=== PATIENT | female | born 1970 | race African-American/Black ===

== ENCOUNTER 2019-02-08 09:38 | Inpatient (IN) | payer OTHER ==
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
[2019-02-08 11:14] VITALS: BMI 20.4
[2019-02-08] MEDS ORDERED: METHOCARBAMOL 500 MG TABLET PO PRN (12:07)
[2019-02-08] MEDS ORDERED: IBUPROFEN 400 MG TABLET (FP) PO PRN (12:07)
[2019-02-08] MEDS ORDERED: MAGNESIUM HYDROX 2400MG/30ML ORAL SUSPENSION 30 ML CUP PO PRN (12:07)
[2019-02-08] MEDS ORDERED: MAG HYDROX/AL HYDROX/SIMETH 30 ML UNIT-DOSE CUP PO PRN (12:07)
[2019-02-08] MEDS ORDERED: ACETAMINOPHEN 325 MG TABLET (FP) PO PRN ×2 (12:07)
[2019-02-08] MEDS ORDERED: MENTHOL/PHENOL 1 EACH UD MM PRN (12:07)
[2019-02-08] MEDS ORDERED: NICOTINE POLACRILEX 4 MG GUM BUC PRN (12:07)
[2019-02-08] MEDS ORDERED: BISMUTH SUBSALICYLATE 524 MG/30 ML UD PO PRN (12:07)
[2019-02-08] MEDS ORDERED: MAGNESIUM CITRATE 300 ML BOTTLE PO PRN (12:07)
[2019-02-08] MEDS ORDERED: ALBUTEROL SO4 8 GM HFA INHALER IH PRN (12:15)
[2019-02-08] MEDS ORDERED: METHADONE HCL 10 MG TABLET PO ONE (12:21)
[2019-02-08] MEDS: NICOTINE 21 MG/24 HOURS TOPICAL PATCH TD SCH (13:00)
[2019-02-08] MEDS: hydrOXYzine PAMOATE 25 MG CAPSULE (FP) PO PRN (17:06)
[2019-02-08] MEDS: LORazepam 2 MG TABLET PO SCH ×2 (17:07→22:30)
--- NOTE | 2019-02-08 17:52 | EKG ---
Test Reason : Blood Pressure : / mmHG Vent. Rate : 089 BPM Atrial Rate : 089 BPM P-R Int : 138 ms QRS Dur : 072 ms QT Int : 372 ms P-R-T Axes : 070 069 071 degrees QTc Int : 452 ms NORMAL SINUS RHYTHM POSSIBLE LEFT ATRIAL ENLARGEMENT BORDERLINE ECG NO PREVIOUS ECGS AVAILABLE Confirmed by MD Catia, Karlos ([id number]) on 02/08/2019 5:51:43 PM Referred By: ARCENIO SIEGEL Confirmed By:Karlos Bardales MD
[2019-02-08] MEDS: BUDESONIDE/FORMETEROL FUMARATE 160/4.5 mcg INHALER IH SCH (21:45)
[2019-02-08] MEDS: THIAMINE HCL 100 MG TABLET (FP) PO SCH (21:53)
[2019-02-09] MEDS: LORazepam 2 MG TABLET PO SCH ×4 (05:35→22:50)
[2019-02-09] MEDS ORDERED: METHADONE HCL 10 MG TABLET PO ONE (06:00)
[2019-02-09] MEDS: hydrOXYzine PAMOATE 25 MG CAPSULE (FP) PO PRN (08:45)
[2019-02-09] MEDS: BUDESONIDE/FORMETEROL FUMARATE 160/4.5 mcg INHALER IH SCH ×2 (09:04→21:08)
[2019-02-09] MEDS: PRENATAL VITAMINS W/ FOLIC ACID TABLET (FP) PO SCH (09:04)
[2019-02-09] MEDS: NICOTINE 21 MG/24 HOURS TOPICAL PATCH TD SCH (09:04)
[2019-02-09] MEDS: TIOTROPIUM BROMIDE 2.5 MCG (SPIRIVA) RESPIMAT INHALER IH SCH (10:12)
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
[2019-02-09 12:13] LABS: HEMATOCRIT 32.5 % (32.4-45.2); HEMOGLOBIN 10.4 GM/dL (10.7-15.3); MCH 27.7 pg (25.7-33.7); MEAN CELL VOLUME 86.5 fl (80-96); MEAN PLT VOLUME 10.3 fl (7.5-11.1); PLATELET COUNT 183 K/MM3 (134-434); RBC 3.76 M/mm3 (3.60-5.2); RDW 15.2 % (11.6-15.6)
[2019-02-09 12:21] LABS: BILIRUBIN,TOTAL 0.2 mg/dL (0.2-1); BLOOD UREA NITROGEN 24.8 mg/dL (7-18); CALCIUM 8.6 mg/dL (8.5-10.1); CREATININE 0.8 mg/dL (0.55-1.3); POTASSIUM 4.2 mmol/L (3.5-5.1); TOT PROT 5.4 g/dl (6.4-8.2)
[2019-02-09] MEDS: ZIPRASIDONE 40 MG CAPSULE (FP) PO SCH ×2 (14:34→21:07)
[2019-02-09] MEDS: TRIHEXYPHENIDYL HCL 2 MG TABLET PO SCH ×2 (14:34→21:08)
[2019-02-09] MEDS: LORazepam 1 MG TABLET PO PRN (15:37)
--- NOTE | 2019-02-09 16:08 | PN ---
[facility] CIWA - CIWA Score Nausea/Vomitin-Mild Nausea/No Vomiting Muscle Tremors: 4-Moderate,w/Arms Extend Anxiety: 3 Agitation: 3 Paroxysmal Sweats: 3 Orientation: 0-Oriented Tacttile Disturbances: 0-None Auditory Disturbances: 0-None Visual Disturbances: 0-None Headache: 0-None Present CIWA-Ar Total Score: 14 S Progress Note (SOAP) Subjective: Anxiety, irritable, muscle spasm, sweating, chills, tremor Objective: 02/09/19 16:04 Last Vital Signs Temp Pulse Resp BP Pulse Ox 97.1 F L 81 16 100/63 02/09/19 13:44 02/09/19 13:44 02/09/19 13:44 02/09/19 13:44 Laboratory Tests 02/09/19 02/09/19 02/09/19 07:35 07:35 07:35 WBC 8.0 RBC 3.76 Hgb 10.4 L Hct 32.5 MCV 86.5 MCH 27.7 MCHC 32.0 RDW 15.2 Plt Count 183 MPV 10.3 Sodium 138 Potassium 4.2 Chloride 104 Carbon Dioxide 31 Anion Gap 3 L BUN 24.8 H Creatinine 0.8 Est GFR (CKD-EPI)AfAm 100.33 Est GFR (CKD-EPI)NonAf 86.57 Random Glucose 89 Calcium 8.6 Total Bilirubin 0.2 AST 14 L ALT 27 Alkaline Phosphatase 70 Total Protein 5.4 L Albumin 3.0 L RPR Titer Nonreactive Labs reviewed: bun 24.8 (high), total protein 5.4/albumin 3 (low) Assessment: 02/09/19 16:05 Withdrawal sxs Noted with azotemia and hypoalbuminemia Plan: Continue detox Azotemia: encouraged PO water hydration Hypoalbuminemia: encouraged diet, ensure TID
[2019-02-09] MEDS: THIAMINE HCL 100 MG TABLET (FP) PO SCH (21:07)
[2019-02-10] MEDS: LORazepam 1 MG TABLET PO SCH ×4 (05:57→22:11)
[2019-02-10] MEDS ORDERED: METHADONE HCL 10 MG TABLET PO ONE (06:00)
[2019-02-10] MEDS: hydrOXYzine PAMOATE 25 MG CAPSULE (FP) PO PRN ×2 (08:56→20:02)
[2019-02-10] MEDS: ZIPRASIDONE 40 MG CAPSULE (FP) PO SCH ×2 (09:57→22:11)
[2019-02-10] MEDS: PRENATAL VITAMINS W/ FOLIC ACID TABLET (FP) PO SCH (09:57)
[2019-02-10] MEDS: CITALOPRAM HYDROBROMIDE 20 MG TABLET (FP) PO SCH (09:58)
[2019-02-10] MEDS: NICOTINE 21 MG/24 HOURS TOPICAL PATCH TD SCH (10:00)
[2019-02-10] MEDS: BUDESONIDE/FORMETEROL FUMARATE 160/4.5 mcg INHALER IH SCH ×2 (10:00→22:11)
[2019-02-10] MEDS: TIOTROPIUM BROMIDE 2.5 MCG (SPIRIVA) RESPIMAT INHALER IH SCH (10:00)
--- NOTE | 2019-02-10 10:40 | PN ---
S CIWA - CIWA Score Nausea/Vomitin-No Nausea/No Vomiting Muscle Tremors: 2 Anxiety: 3 Agitation: 3 Paroxysmal Sweats: 1-Minimal Palms Moist Orientation: 0-Oriented Tacttile Disturbances: 0-None Auditory Disturbances: 0-None Visual Disturbances: 0-None Headache: 0-None Present CIWA-Ar Total Score: 9 [facility] Progress Note (SOAP) Subjective: shakes restless body aches interrupted sleep Objective: 02/10/19 10:40 Vital Signs Temperature 97.3 F L 02/10/19 09:18 Pulse Rate 87 02/10/19 09:18 Respiratory Rate 18 02/10/19 09:18 Blood Pressure 111/67 02/10/19 09:18 O2 Sat by Pulse Oximetry (%) Laboratory Tests 02/09/19 02/09/19 02/09/19 07:35 07:35 07:35 WBC 8.0 RBC 3.76 Hgb 10.4 L Hct 32.5 MCV 86.5 MCH 27.7 MCHC 32.0 RDW 15.2 Plt Count 183 MPV 10.3 Sodium 138 Potassium 4.2 Chloride 104 Carbon Dioxide 31 Anion Gap 3 L BUN 24.8 H Creatinine 0.8 Est GFR (CKD-EPI)AfAm 100.33 Est GFR (CKD-EPI)NonAf 86.57 Random Glucose 89 Calcium 8.6 Total Bilirubin 0.2 AST 14 L ALT 27 Alkaline Phosphatase 70 Total Protein 5.4 L Albumin 3.0 L RPR Titer Nonreactive aaox3 ambulating no acute distress Assessment: 02/10/19 10:40 withdrawal sx Plan: continue detox increase fluids
[2019-02-10] MEDS: TRIHEXYPHENIDYL HCL 2 MG TABLET PO SCH ×2 (10:42→22:11)
[2019-02-10] MEDS: LORazepam 1 MG TABLET PO PRN (13:40)
[2019-02-10] MEDS: THIAMINE HCL 100 MG TABLET (FP) PO SCH (22:11)
[2019-02-10] MEDS: MELATONIN 5 MG TABLETS PO PRN (22:14)
[2019-02-11] MEDS ORDERED: LORazepam 0.5 MG TABLET PO PRN
[2019-02-11] MEDS: LORazepam 0.5 MG TABLET PO SCH ×4 (05:26→22:18)
[2019-02-11] MEDS ORDERED: METHADONE HCL 40 MG DISPERSABLE TABLET PO SCH (06:00)
--- NOTE | 2019-02-11 10:06 | PN ---
S CIWA - CIWA Score Nausea/Vomitin-No Nausea/No Vomiting Muscle Tremors: 2 Anxiety: 1-Mildly Anxious Agitation: 2 Paroxysmal Sweats: No Perspiration Orientation: 0-Oriented Tacttile Disturbances: 0-None Auditory Disturbances: 0-None Visual Disturbances: 0-None Headache: 0-None Present CIWA-Ar Total Score: 5 [facility] Progress Note (SOAP) Subjective: anxiety feeling much better Objective: 02/11/19 10:05 Vital Signs Temperature 97.7 F 02/11/19 09:24 Pulse Rate 82 02/11/19 09:24 Respiratory Rate 18 02/11/19 09:24 Blood Pressure 105/85 02/11/19 09:24 O2 Sat by Pulse Oximetry (%) aaox3 ambulating no acute distress Assessment: 02/11/19 10:06 mild withdrawals Plan: continue detox d/c in am
[2019-02-11] MEDS: BUDESONIDE/FORMETEROL FUMARATE 160/4.5 mcg INHALER IH SCH ×2 (10:09→22:18)
[2019-02-11] MEDS: TIOTROPIUM BROMIDE 2.5 MCG (SPIRIVA) RESPIMAT INHALER IH SCH (10:09)
[2019-02-11] MEDS: CITALOPRAM HYDROBROMIDE 20 MG TABLET (FP) PO SCH (10:10)
[2019-02-11] MEDS: ZIPRASIDONE 40 MG CAPSULE (FP) PO SCH ×2 (10:10→22:18)
[2019-02-11] MEDS: NICOTINE 21 MG/24 HOURS TOPICAL PATCH TD SCH (10:11)
[2019-02-11] MEDS: PRENATAL VITAMINS W/ FOLIC ACID TABLET (FP) PO SCH (10:13)
[2019-02-11] MEDS: TRIHEXYPHENIDYL HCL 2 MG TABLET PO SCH ×2 (10:14→22:19)
[2019-02-11] MEDS ORDERED: diphenhydrAMINE HCL 50 MG CAPSULE PO ONE (11:13)
[2019-02-11] MEDS ORDERED: COLLOIDAL OATMEAL 1 BAR EACH TP PRN (11:13)
[2019-02-11] MEDS ORDERED: diphenhydrAMINE HCL 25 MG CAPSULE (FP) PO ONE (11:59)
[2019-02-11 12:00] LABS: EPI CELLS 1.4 /HPF (0-5/HPF); HYALINE CASTS 1 /lpf (0-8); URINE APPEARANCE CLEAR; URINE BACTERIA 23.6 /hpf (NEGATIVE); URINE BILIRUBIN NEGATIVE (NEGATIVE); URINE COLOR YELLOW; URINE GLUCOSE (UA) NEGATIVE (NEGATIVE); URINE KETONE NEGATIVE (NEGATIVE); URINE LEUK ESTERASE 1+ (NEGATIVE); URINE NITRITE NEGATIVE (NEGATIVE); URINE PROTEIN NEGATIVE (NEGATIVE); URINE RBC 0 /hpf (0-4); URINE UROBILINOGEN 0.2 mg/dL (0.2-1.0); URINE WBC 3 /hpf (0-5)
[2019-02-11] MEDS: AMMONIUM LACTATE 12% LOTION 225 GM BOTTLE TP SCH ×2 (12:11→22:19)
[2019-02-11] MEDS: THIAMINE HCL 100 MG TABLET (FP) PO SCH (22:18)
[2019-02-11] MEDS: MELATONIN 5 MG TABLETS PO PRN (22:20)
[2019-02-11] MEDS: hydrOXYzine PAMOATE 25 MG CAPSULE (FP) PO PRN (22:22)
[2019-02-12] MEDS ORDERED: LORazepam 0.5 MG TABLET PO ONE (05:00)
[2019-02-12] MEDS ORDERED: METHADONE HCL 10 MG TABLET ONE (05:29)
[2019-02-12] MEDS ORDERED: METHADONE HCL 40 MG DISPERSABLE TABLET ONE (05:29)
[2019-02-12] MEDS ORDERED: METHADONE 40 MG, METHADONE 10 MG PO SCH (06:00)
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
[2019-02-12] MEDS: TIOTROPIUM BROMIDE 2.5 MCG (SPIRIVA) RESPIMAT INHALER IH SCH (10:17)
[2019-02-12] MEDS: NICOTINE 21 MG/24 HOURS TOPICAL PATCH TD SCH (10:17)
[2019-02-12] MEDS: BUDESONIDE/FORMETEROL FUMARATE 160/4.5 mcg INHALER IH SCH (10:17)
[2019-02-12] MEDS: CITALOPRAM HYDROBROMIDE 20 MG TABLET (FP) PO SCH (10:17)
[2019-02-12] MEDS: TRIHEXYPHENIDYL HCL 2 MG TABLET PO SCH (10:17)
[2019-02-12] MEDS: AMMONIUM LACTATE 12% LOTION 225 GM BOTTLE TP SCH (10:17)
[2019-02-12] MEDS: PRENATAL VITAMINS W/ FOLIC ACID TABLET (FP) PO SCH (10:17)
[2019-02-12] MEDS: ZIPRASIDONE 40 MG CAPSULE (FP) PO SCH (10:18)
[2019-02-12] MEDS: hydrOXYzine PAMOATE 25 MG CAPSULE (FP) PO PRN (10:19)
[2019-02-12 13:49] VITALS: BP 109/79; PULSE 86; TEMP 98.2
== END 2019-02-12 15:03 | disposition other institution (70) | DRG 773 ==
LOC: YASAS 09:38 → Y6N 12:09
PROVIDERS: ADMIT Allergy & Immunology; ATTEND Allergy & Immunology
PROC: HZ2ZZZZ Detoxification Services for Substance Abuse Treatment (ICD-10-PCS; principal; 2019-02-08)
DX: F10.230 Alcohol dependence with withdrawal, uncomplicated (principal); F11.23 Opioid dependence with withdrawal; F14.20 Cocaine dependence, uncomplicated; F12.20 Cannabis dependence, uncomplicated; F17.210 Nicotine dependence, cigarettes, uncomplicated; F43.10 Post-traumatic stress disorder, unspecified; F33.9 Major depressive disorder, recurrent, unspecified; F39 Unspecified mood [affective] disorder; E88.09 Other disorders of plasma-protein metabolism, not elsewhere classified; J44.9 Chronic obstructive pulmonary disease, unspecified; D64.9 Anemia, unspecified; R79.89 Other specified abnormal findings of blood chemistry; R63.4 Abnormal weight loss; Z68.20 Body mass index [BMI] 20.0-20.9, adult; Z87.828 Personal history of other (healed) physical injury and trauma; Z88.1 Allergy status to other antibiotic agents; Z88.8 Allergy status to other drugs, medicaments and biological substances; Z59.0 Homelessness
CPT/HCPCS: 36415; 71046-TC-FY; 80053; 81003; 85027; 86593; 93005; 93010

== ENCOUNTER 2019-02-12 15:44 | Inpatient (IN) | payer OTHER ==
--- NOTE | 2019-02-12 12:02 | HP ---
[facility] Rehab Assess/Revision - Admission History Admitted to Rehab from[facility] - Findings Detox History & Physical reviewed: Yes Concur with findings: Yes Inpatient Rehab Admission - Rehab Decision to Admit Inpatient rehab admission?: Yes - Initial Determination Are CD services needed?: Yes Free of communicable disease: Yes Not in need of hospitalization: Yes - Rehab Admission Criteria Previous failed treatment: Yes Poor recovery environment: Yes Comorbidities: Yes Lacks judgement: Yes Patient is meeting Inpatient Rehab admission criteria:: Yes
[~2019-02-12 15:44] MED LIST: ACETAMINOPHEN 325 MG TABLET (FP) PO PRN; IBUPROFEN 400 MG TABLET (FP) PO PRN; LOPERAMIDE HCL 2 MG CAPSULE PO PRN; MAG HYDROX/AL HYDROX/SIMETH 30 ML UNIT-DOSE CUP PO PRN; MAGNESIUM CITRATE 300 ML BOTTLE PO PRN; MAGNESIUM HYDROX 2400MG/30ML ORAL SUSPENSION 30 ML CUP PO PRN; MENTHOL/PHENOL 1 EACH UD MM PRN; P-EPHED 60MG/TRIPROLIDI 2.5MG TABLET PO PRN; guaiFENesin 200 MG/10 ML 10 ML UNIT-DOSE CUPS PO PRN; hydrOXYzine PAMOATE 50 MG CAPSULE (FP) PO PRN
[2019-02-12] MEDS ORDERED: hydrOXYzine PAMOATE 50 MG CAPSULE (FP) PO PRN (16:25)
[2019-02-12] MEDS ORDERED: ALBUTEROL SO4 8 GM HFA INHALER IH PRN (17:14)
[2019-02-12] MEDS ORDERED: PT OWN MED DRAWER 7, Y5N ONE (20:27)
[2019-02-12] MEDS: ZIPRASIDONE 40 MG CAPSULE (FP) PO SCH (21:33)
[2019-02-12] MEDS: TRIHEXYPHENIDYL HCL 2 MG TABLET PO SCH (21:33)
[2019-02-12] MEDS: MELATONIN 5 MG TABLETS PO PRN (21:34)
[2019-02-12] MEDS: BUDESONIDE/FORMETEROL FUMARATE 160/4.5 mcg INHALER IH SCH (21:34)
[2019-02-12] MEDS: THIAMINE HCL 100 MG TABLET (FP) PO SCH (21:34)
[2019-02-13] MEDS ORDERED: METHADONE HCL 40 MG DISPERSABLE TABLET PO SCH (06:00)
[2019-02-13] MEDS ORDERED: METHADONE HCL 40 MG DISPERSABLE TABLET ONE (06:30)
[2019-02-13] MEDS ORDERED: METHADONE HCL 10 MG TABLET ONE (06:30)
[2019-02-13] MEDS: METHADONE 40 MG, METHADONE 10 MG PO SCH (07:08)
[2019-02-13] MEDS ORDERED: PT OWN MED DRAWER 7, Y5N ONE ×5 (08:16→23:37)
[2019-02-13] MEDS: TRIHEXYPHENIDYL HCL 2 MG TABLET PO SCH ×2 (10:10→21:34)
[2019-02-13] MEDS: ZIPRASIDONE 40 MG CAPSULE (FP) PO SCH ×2 (10:10→21:35)
[2019-02-13] MEDS: CITALOPRAM HYDROBROMIDE 20 MG TABLET (FP) PO SCH (10:10)
[2019-02-13] MEDS: PRENATAL VITAMINS W/ FOLIC ACID TABLET (FP) PO SCH (10:11)
[2019-02-13] MEDS: NICOTINE 21 MG/24 HOURS TOPICAL PATCH TD SCH (10:11)
[2019-02-13] MEDS: BUDESONIDE/FORMETEROL FUMARATE 160/4.5 mcg INHALER IH SCH ×2 (10:12→21:36)
[2019-02-13] MEDS ORDERED: hydrOXYzine PAMOATE 25 MG CAPSULE (FP) PO PRN (10:17)
[2019-02-13] MEDS ORDERED: BUDESONIDE/FORMETEROL FUMARATE 80/4.5 mcg INHALER IH SCH (13:00)
[2019-02-13] MEDS: HYDROCORTISONE 1% TOPICAL CREAM 30 GM TUBE TP PRN (18:23)
[2019-02-13] MEDS: NICOTINE POLACRILEX 4 MG GUM BUC PRN (20:11)
[2019-02-13] MEDS: hydrOXYzine PAMOATE 25 MG CAPSULE (FP) PO PRN (20:13)
[2019-02-13] MEDS: THIAMINE HCL 100 MG TABLET (FP) PO SCH (21:36)
[2019-02-14] MEDS ORDERED: METHADONE HCL 40 MG DISPERSABLE TABLET ONE (05:50)
[2019-02-14] MEDS ORDERED: METHADONE HCL 10 MG TABLET ONE (05:50)
[2019-02-14] MEDS: METHADONE 40 MG, METHADONE 10 MG PO SCH (06:23)
[2019-02-14] MEDS: BUDESONIDE/FORMETEROL FUMARATE 160/4.5 mcg INHALER IH SCH ×2 (09:41→21:20)
[2019-02-14] MEDS: NICOTINE 21 MG/24 HOURS TOPICAL PATCH TD SCH (09:41)
[2019-02-14] MEDS: HYDROCORTISONE 1% TOPICAL CREAM 30 GM TUBE TP PRN ×2 (09:41→18:26)
[2019-02-14] MEDS: CITALOPRAM HYDROBROMIDE 20 MG TABLET (FP) PO SCH (09:42)
[2019-02-14] MEDS: PRENATAL VITAMINS W/ FOLIC ACID TABLET (FP) PO SCH (09:42)
[2019-02-14] MEDS: ZIPRASIDONE 40 MG CAPSULE (FP) PO SCH ×2 (09:44→21:19)
[2019-02-14] MEDS ORDERED: PT OWN MED DRAWER 7, Y5N ONE ×5 (09:44→20:46)
[2019-02-14] MEDS: hydrOXYzine PAMOATE 25 MG CAPSULE (FP) PO PRN ×2 (09:45→21:21)
[2019-02-14] MEDS: TRIHEXYPHENIDYL HCL 2 MG TABLET PO SCH ×2 (09:47→21:19)
[2019-02-14] MEDS ORDERED: COLLOIDAL OATMEAL 1 BAR EACH TP PRN (11:46)
[2019-02-14] MEDS: TIOTROPIUM BROMIDE 2.5 MCG (SPIRIVA) RESPIMAT INHALER IH SCH (12:59)
[2019-02-14] MEDS: NICOTINE POLACRILEX 4 MG GUM BUC PRN ×2 (13:01→18:27)
--- NOTE | 2019-02-14 13:17 | PN ---
[facility] Progress Note (SOAP) Subjective: patient transferred from detox; had CXR in detox to R/O PNA Objective: General: no apparent distress Neck; supple Lungs: clear Heart: s1 s2 02/14/19 13:16 Assessment: Patient transfer; R/O PNA 02/14/19 13:16 Plan: CXR indicates no acute pathology
[2019-02-14] MEDS: THIAMINE HCL 100 MG TABLET (FP) PO SCH (21:19)
[2019-02-14] MEDS: MELATONIN 5 MG TABLETS PO PRN (21:21)
[2019-02-15] MEDS ORDERED: METHADONE HCL 10 MG TABLET ONE (03:41)
[2019-02-15] MEDS ORDERED: METHADONE HCL 40 MG DISPERSABLE TABLET ONE (03:41)
[2019-02-15] MEDS: METHADONE 40 MG, METHADONE 10 MG PO SCH (06:32)
[2019-02-15] MEDS ORDERED: PT OWN MED DRAWER 7, Y5N ONE ×3 (08:40→21:24)
[2019-02-15] MEDS: hydrOXYzine PAMOATE 25 MG CAPSULE (FP) PO PRN ×2 (09:47→21:21)
[2019-02-15] MEDS: ZIPRASIDONE 40 MG CAPSULE (FP) PO SCH ×2 (09:47→21:20)
[2019-02-15] MEDS: BUDESONIDE/FORMETEROL FUMARATE 160/4.5 mcg INHALER IH SCH ×2 (09:47→21:19)
[2019-02-15] MEDS: NICOTINE 21 MG/24 HOURS TOPICAL PATCH TD SCH (09:47)
[2019-02-15] MEDS: TIOTROPIUM BROMIDE 2.5 MCG (SPIRIVA) RESPIMAT INHALER IH SCH (09:47)
[2019-02-15] MEDS: CITALOPRAM HYDROBROMIDE 20 MG TABLET (FP) PO SCH (09:48)
[2019-02-15] MEDS: PRENATAL VITAMINS W/ FOLIC ACID TABLET (FP) PO SCH (09:48)
[2019-02-15] MEDS: TRIHEXYPHENIDYL HCL 2 MG TABLET PO SCH ×2 (09:49→21:20)
[2019-02-15] MEDS: HYDROCORTISONE 1% TOPICAL CREAM 30 GM TUBE TP PRN ×2 (09:51→21:24)
[2019-02-15] MEDS: NICOTINE POLACRILEX 4 MG GUM BUC PRN (13:24)
[2019-02-15] MEDS: THIAMINE HCL 100 MG TABLET (FP) PO SCH (21:20)
[2019-02-15] MEDS: MELATONIN 5 MG TABLETS PO PRN (21:22)
[2019-02-16] MEDS ORDERED: METHADONE HCL 40 MG DISPERSABLE TABLET ONE (02:51)
[2019-02-16] MEDS ORDERED: METHADONE HCL 10 MG TABLET ONE (02:51)
[2019-02-16] MEDS: NICOTINE POLACRILEX 4 MG GUM BUC PRN ×2 (06:56→16:43)
[2019-02-16] MEDS: METHADONE 40 MG, METHADONE 10 MG PO SCH (06:56)
[2019-02-16] MEDS ORDERED: PT OWN MED DRAWER 7, Y5N ONE ×3 (08:34→21:49)
[2019-02-16] MEDS: BUDESONIDE/FORMETEROL FUMARATE 160/4.5 mcg INHALER IH SCH ×2 (09:50→21:44)
[2019-02-16] MEDS: NICOTINE 21 MG/24 HOURS TOPICAL PATCH TD SCH (09:51)
[2019-02-16] MEDS: TIOTROPIUM BROMIDE 2.5 MCG (SPIRIVA) RESPIMAT INHALER IH SCH (09:51)
[2019-02-16] MEDS: ZIPRASIDONE 40 MG CAPSULE (FP) PO SCH ×2 (09:51→21:44)
[2019-02-16] MEDS: CITALOPRAM HYDROBROMIDE 20 MG TABLET (FP) PO SCH (09:51)
[2019-02-16] MEDS: PRENATAL VITAMINS W/ FOLIC ACID TABLET (FP) PO SCH (09:52)
[2019-02-16] MEDS: HYDROCORTISONE 1% TOPICAL CREAM 30 GM TUBE TP PRN (09:53)
[2019-02-16] MEDS: TRIHEXYPHENIDYL HCL 2 MG TABLET PO SCH ×2 (09:53→21:45)
[2019-02-16] MEDS: hydrOXYzine PAMOATE 25 MG CAPSULE (FP) PO PRN ×2 (09:54→21:47)
[2019-02-16] MEDS: THIAMINE HCL 100 MG TABLET (FP) PO SCH (21:45)
[2019-02-16] MEDS: MELATONIN 5 MG TABLETS PO PRN (21:47)
[2019-02-17] MEDS ORDERED: METHADONE HCL 40 MG DISPERSABLE TABLET ONE (05:58)
[2019-02-17] MEDS ORDERED: METHADONE HCL 10 MG TABLET ONE (05:58)
[2019-02-17] MEDS: NICOTINE POLACRILEX 4 MG GUM BUC PRN ×2 (06:20→15:11)
[2019-02-17] MEDS: METHADONE 40 MG, METHADONE 10 MG PO SCH (06:20)
[2019-02-17] MEDS: hydrOXYzine PAMOATE 25 MG CAPSULE (FP) PO PRN ×2 (07:51→21:14)
[2019-02-17] MEDS: NICOTINE 21 MG/24 HOURS TOPICAL PATCH TD SCH (10:04)
[2019-02-17] MEDS: PRENATAL VITAMINS W/ FOLIC ACID TABLET (FP) PO SCH (10:05)
[2019-02-17] MEDS: ZIPRASIDONE 40 MG CAPSULE (FP) PO SCH ×2 (10:05→21:13)
[2019-02-17] MEDS: BUDESONIDE/FORMETEROL FUMARATE 160/4.5 mcg INHALER IH SCH ×2 (10:05→21:13)
[2019-02-17] MEDS: HYDROCORTISONE 1% TOPICAL CREAM 30 GM TUBE TP PRN (10:05)
[2019-02-17] MEDS: TRIHEXYPHENIDYL HCL 2 MG TABLET PO SCH ×2 (10:06→21:13)
[2019-02-17] MEDS: TIOTROPIUM BROMIDE 2.5 MCG (SPIRIVA) RESPIMAT INHALER IH SCH (10:06)
[2019-02-17] MEDS: CITALOPRAM HYDROBROMIDE 20 MG TABLET (FP) PO SCH (10:07)
[2019-02-17] MEDS ORDERED: PT OWN MED DRAWER 7, Y5N ONE ×2 (10:07→20:18)
[2019-02-17] MEDS: THIAMINE HCL 100 MG TABLET (FP) PO SCH (21:13)
[2019-02-17] MEDS: MELATONIN 5 MG TABLETS PO PRN (21:14)
[2019-02-18] MEDS ORDERED: METHADONE HCL 10 MG TABLET ONE (06:23)
[2019-02-18] MEDS: METHADONE 40 MG, METHADONE 10 MG PO SCH (06:24)
[2019-02-18] MEDS ORDERED: METHADONE HCL 40 MG DISPERSABLE TABLET ONE (06:24)
[2019-02-18] MEDS: NICOTINE POLACRILEX 4 MG GUM BUC PRN (06:25)
[2019-02-18] MEDS ORDERED: PT OWN MED DRAWER 7, Y5N ONE ×2 (08:23→21:16)
[2019-02-18] MEDS: BUDESONIDE/FORMETEROL FUMARATE 160/4.5 mcg INHALER IH SCH ×2 (09:58→21:12)
[2019-02-18] MEDS: CITALOPRAM HYDROBROMIDE 20 MG TABLET (FP) PO SCH (09:59)
[2019-02-18] MEDS: HYDROCORTISONE 1% TOPICAL CREAM 30 GM TUBE TP PRN ×2 (09:59→21:13)
[2019-02-18] MEDS: PRENATAL VITAMINS W/ FOLIC ACID TABLET (FP) PO SCH (09:59)
[2019-02-18] MEDS: NICOTINE 21 MG/24 HOURS TOPICAL PATCH TD SCH (09:59)
[2019-02-18] MEDS: TRIHEXYPHENIDYL HCL 2 MG TABLET PO SCH ×2 (09:59→21:15)
[2019-02-18] MEDS: ZIPRASIDONE 40 MG CAPSULE (FP) PO SCH ×2 (09:59→21:13)
[2019-02-18] MEDS: TIOTROPIUM BROMIDE 2.5 MCG (SPIRIVA) RESPIMAT INHALER IH SCH (09:59)
[2019-02-18] MEDS: hydrOXYzine PAMOATE 25 MG CAPSULE (FP) PO PRN ×2 (10:01→21:11)
[2019-02-18] MEDS: THIAMINE HCL 100 MG TABLET (FP) PO SCH (21:10)
[2019-02-18] MEDS: MELATONIN 5 MG TABLETS PO PRN (21:15)
[2019-02-19] MEDS ORDERED: METHADONE HCL 40 MG DISPERSABLE TABLET ONE (03:50)
[2019-02-19] MEDS ORDERED: METHADONE HCL 10 MG TABLET ONE (03:50)
[2019-02-19] MEDS: METHADONE 40 MG, METHADONE 10 MG PO SCH (06:55)
[2019-02-19] MEDS: NICOTINE POLACRILEX 4 MG GUM BUC PRN ×2 (06:57→10:05)
[2019-02-19] MEDS: hydrOXYzine PAMOATE 25 MG CAPSULE (FP) PO PRN ×2 (07:51→21:50)
[2019-02-19] MEDS ORDERED: PT OWN MED DRAWER 7, Y5N ONE ×2 (08:54→19:23)
[2019-02-19] MEDS: BUDESONIDE/FORMETEROL FUMARATE 160/4.5 mcg INHALER IH SCH ×2 (10:04→21:50)
[2019-02-19] MEDS: TIOTROPIUM BROMIDE 2.5 MCG (SPIRIVA) RESPIMAT INHALER IH SCH (10:04)
[2019-02-19] MEDS: NICOTINE 21 MG/24 HOURS TOPICAL PATCH TD SCH (10:05)
[2019-02-19] MEDS: PRENATAL VITAMINS W/ FOLIC ACID TABLET (FP) PO SCH (10:05)
[2019-02-19] MEDS: HYDROCORTISONE 1% TOPICAL CREAM 30 GM TUBE TP PRN (10:05)
[2019-02-19] MEDS: ZIPRASIDONE 40 MG CAPSULE (FP) PO SCH ×2 (10:05→21:51)
[2019-02-19] MEDS: TRIHEXYPHENIDYL HCL 2 MG TABLET PO SCH ×2 (10:05→21:52)
[2019-02-19] MEDS: CITALOPRAM HYDROBROMIDE 20 MG TABLET (FP) PO SCH (10:05)
[2019-02-19] MEDS: THIAMINE HCL 100 MG TABLET (FP) PO SCH (21:50)
[2019-02-19] MEDS: MELATONIN 5 MG TABLETS PO PRN (21:51)
[2019-02-20] MEDS ORDERED: METHADONE HCL 10 MG TABLET PO SCH (06:00)
[2019-02-20] MEDS: METHADONE 40 MG, METHADONE 10 MG PO SCH (06:33)
[2019-02-20] MEDS ORDERED: METHADONE HCL 40 MG DISPERSABLE TABLET ONE (06:33)
[2019-02-20] MEDS ORDERED: METHADONE HCL 10 MG TABLET ONE (06:33)
[2019-02-20] MEDS: NICOTINE POLACRILEX 4 MG GUM BUC PRN ×2 (06:34→10:04)
[2019-02-20] MEDS ORDERED: PT OWN MED DRAWER 7, Y5N ONE ×2 (08:44→21:57)
[2019-02-20] MEDS: CITALOPRAM HYDROBROMIDE 20 MG TABLET (FP) PO SCH (10:00)
[2019-02-20] MEDS: TRIHEXYPHENIDYL HCL 2 MG TABLET PO SCH ×2 (10:00→21:54)
[2019-02-20] MEDS: BUDESONIDE/FORMETEROL FUMARATE 160/4.5 mcg INHALER IH SCH ×2 (10:01→21:54)
[2019-02-20] MEDS: PRENATAL VITAMINS W/ FOLIC ACID TABLET (FP) PO SCH (10:01)
[2019-02-20] MEDS: NICOTINE 21 MG/24 HOURS TOPICAL PATCH TD SCH (10:01)
[2019-02-20] MEDS: ZIPRASIDONE 40 MG CAPSULE (FP) PO SCH ×2 (10:01→21:57)
[2019-02-20] MEDS: TIOTROPIUM BROMIDE 2.5 MCG (SPIRIVA) RESPIMAT INHALER IH SCH (10:01)
[2019-02-20] MEDS: hydrOXYzine PAMOATE 25 MG CAPSULE (FP) PO PRN ×3 (10:03→21:53)
[2019-02-20] MEDS: HYDROCORTISONE 1% TOPICAL CREAM 30 GM TUBE TP PRN (10:03)
[2019-02-20] MEDS: THIAMINE HCL 100 MG TABLET (FP) PO SCH (21:53)
[2019-02-21] MEDS ORDERED: METHADONE HCL 40 MG DISPERSABLE TABLET ONE (06:18)
[2019-02-21] MEDS ORDERED: METHADONE HCL 10 MG TABLET ONE (06:18)
[2019-02-21] MEDS: METHADONE 40 MG, METHADONE 10 MG PO SCH (06:41)
[2019-02-21] MEDS: NICOTINE POLACRILEX 4 MG GUM BUC PRN ×2 (06:41→10:08)
[2019-02-21] MEDS ORDERED: PT OWN MED DRAWER 7, Y5N ONE (08:17)
[2019-02-21] MEDS: NICOTINE 21 MG/24 HOURS TOPICAL PATCH TD SCH (10:05)
[2019-02-21] MEDS: CITALOPRAM HYDROBROMIDE 20 MG TABLET (FP) PO SCH (10:05)
[2019-02-21] MEDS: TIOTROPIUM BROMIDE 2.5 MCG (SPIRIVA) RESPIMAT INHALER IH SCH (10:05)
[2019-02-21] MEDS: BUDESONIDE/FORMETEROL FUMARATE 160/4.5 mcg INHALER IH SCH ×2 (10:05→21:58)
[2019-02-21] MEDS: ZIPRASIDONE 40 MG CAPSULE (FP) PO SCH ×2 (10:05→21:58)
[2019-02-21] MEDS: TRIHEXYPHENIDYL HCL 2 MG TABLET PO SCH ×2 (10:06→21:58)
[2019-02-21] MEDS: PRENATAL VITAMINS W/ FOLIC ACID TABLET (FP) PO SCH (10:06)
[2019-02-21] MEDS: hydrOXYzine PAMOATE 25 MG CAPSULE (FP) PO PRN ×2 (10:09→21:59)
[2019-02-21] MEDS: THIAMINE HCL 100 MG TABLET (FP) PO SCH (21:58)
[2019-02-21] MEDS: MELATONIN 5 MG TABLETS PO PRN (22:00)
[2019-02-22] MEDS ORDERED: METHADONE HCL 10 MG TABLET ONE (06:17)
[2019-02-22] MEDS ORDERED: METHADONE HCL 40 MG DISPERSABLE TABLET ONE (06:18)
[2019-02-22] MEDS: METHADONE 40 MG, METHADONE 10 MG PO SCH (06:42)
[2019-02-22] MEDS: NICOTINE POLACRILEX 4 MG GUM BUC PRN ×2 (06:43→21:43)
[2019-02-22] MEDS: hydrOXYzine PAMOATE 25 MG CAPSULE (FP) PO PRN (08:18)
[2019-02-22] MEDS: TRIHEXYPHENIDYL HCL 2 MG TABLET PO SCH ×2 (09:24→21:35)
[2019-02-22] MEDS: CITALOPRAM HYDROBROMIDE 20 MG TABLET (FP) PO SCH (09:24)
[2019-02-22] MEDS: PRENATAL VITAMINS W/ FOLIC ACID TABLET (FP) PO SCH (09:24)
[2019-02-22] MEDS: NICOTINE 21 MG/24 HOURS TOPICAL PATCH TD SCH (09:25)
[2019-02-22] MEDS: ZIPRASIDONE 40 MG CAPSULE (FP) PO SCH ×2 (09:25→21:42)
[2019-02-22] MEDS: HYDROCORTISONE 1% TOPICAL CREAM 30 GM TUBE TP PRN ×2 (09:26→21:43)
[2019-02-22] MEDS: BUDESONIDE/FORMETEROL FUMARATE 160/4.5 mcg INHALER IH SCH ×2 (09:27→21:40)
[2019-02-22] MEDS: TIOTROPIUM BROMIDE 2.5 MCG (SPIRIVA) RESPIMAT INHALER IH SCH (09:27)
[2019-02-22] MEDS: THIAMINE HCL 100 MG TABLET (FP) PO SCH (21:41)
[2019-02-22] MEDS: MELATONIN 5 MG TABLETS PO PRN (21:41)
[2019-02-22] MEDS ORDERED: PT OWN MED DRAWER 7, Y5N ONE ×2 (21:42→21:43)
[2019-02-23] MEDS ORDERED: METHADONE HCL 40 MG DISPERSABLE TABLET ONE (06:01)
[2019-02-23] MEDS ORDERED: METHADONE HCL 10 MG TABLET ONE (06:01)
[2019-02-23] MEDS: NICOTINE POLACRILEX 4 MG GUM BUC PRN ×2 (06:50→21:21)
[2019-02-23] MEDS: METHADONE 40 MG, METHADONE 10 MG PO SCH (06:50)
[2019-02-23] MEDS: PRENATAL VITAMINS W/ FOLIC ACID TABLET (FP) PO SCH (10:20)
[2019-02-23] MEDS: NICOTINE 21 MG/24 HOURS TOPICAL PATCH TD SCH (10:20)
[2019-02-23] MEDS: TRIHEXYPHENIDYL HCL 2 MG TABLET PO SCH ×2 (10:21→21:21)
[2019-02-23] MEDS: CITALOPRAM HYDROBROMIDE 20 MG TABLET (FP) PO SCH (10:21)
[2019-02-23] MEDS: ZIPRASIDONE 40 MG CAPSULE (FP) PO SCH ×2 (10:21→21:21)
[2019-02-23] MEDS: TIOTROPIUM BROMIDE 2.5 MCG (SPIRIVA) RESPIMAT INHALER IH SCH (10:22)
[2019-02-23] MEDS: HYDROCORTISONE 1% TOPICAL CREAM 30 GM TUBE TP PRN (10:22)
[2019-02-23] MEDS: BUDESONIDE/FORMETEROL FUMARATE 160/4.5 mcg INHALER IH SCH ×2 (10:22→21:21)
[2019-02-23] MEDS: hydrOXYzine PAMOATE 25 MG CAPSULE (FP) PO PRN ×2 (10:23→21:22)
[2019-02-23] MEDS ORDERED: PT OWN MED DRAWER 7, Y5N ONE ×2 (18:38→18:40)
[2019-02-23] MEDS: MELATONIN 5 MG TABLETS PO PRN (21:21)
[2019-02-23] MEDS: THIAMINE HCL 100 MG TABLET (FP) PO SCH (21:21)
[2019-02-24] MEDS ORDERED: METHADONE HCL 10 MG TABLET ONE (06:34)
[2019-02-24] MEDS ORDERED: METHADONE HCL 40 MG DISPERSABLE TABLET ONE (06:34)
[2019-02-24] MEDS: METHADONE 40 MG, METHADONE 10 MG PO SCH (06:49)
[2019-02-24] MEDS: NICOTINE POLACRILEX 4 MG GUM BUC PRN ×3 (06:50→18:05)
[2019-02-24] MEDS ORDERED: PT OWN MED DRAWER 7, Y5N ONE ×3 (08:41→19:19)
[2019-02-24] MEDS: CITALOPRAM HYDROBROMIDE 20 MG TABLET (FP) PO SCH (09:55)
[2019-02-24] MEDS: TRIHEXYPHENIDYL HCL 2 MG TABLET PO SCH ×2 (09:55→21:18)
[2019-02-24] MEDS: PRENATAL VITAMINS W/ FOLIC ACID TABLET (FP) PO SCH (09:56)
[2019-02-24] MEDS: NICOTINE 21 MG/24 HOURS TOPICAL PATCH TD SCH (09:56)
[2019-02-24] MEDS: ZIPRASIDONE 40 MG CAPSULE (FP) PO SCH ×2 (09:56→21:18)
[2019-02-24] MEDS: BUDESONIDE/FORMETEROL FUMARATE 160/4.5 mcg INHALER IH SCH ×2 (09:57→21:18)
[2019-02-24] MEDS: TIOTROPIUM BROMIDE 2.5 MCG (SPIRIVA) RESPIMAT INHALER IH SCH (09:57)
[2019-02-24] MEDS: hydrOXYzine PAMOATE 25 MG CAPSULE (FP) PO PRN ×2 (09:59→18:05)
[2019-02-24] MEDS: HYDROCORTISONE 1% TOPICAL CREAM 30 GM TUBE TP PRN (10:00)
--- NOTE | 2019-02-24 11:55 | PN ---
[facility] Progress Note Note: Patient is scheduled for discharge for 30 days supply of medications(Celexa 20 mg/day, Geodon 40 mg/bid, Artane 2 mg/bid)will be electronically transmitted to [facility] at [address] [place] [address]
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
[2019-02-24] MEDS: THIAMINE HCL 100 MG TABLET (FP) PO SCH (21:17)
[2019-02-24] MEDS: MELATONIN 5 MG TABLETS PO PRN (21:18)
[2019-02-25] MEDS ORDERED: METHADONE HCL 40 MG DISPERSABLE TABLET ONE (06:23)
[2019-02-25] MEDS ORDERED: METHADONE HCL 10 MG TABLET ONE (06:23)
[2019-02-25] MEDS: NICOTINE POLACRILEX 4 MG GUM BUC PRN (06:31)
[2019-02-25] MEDS: METHADONE 40 MG, METHADONE 10 MG PO SCH (06:31)
[2019-02-25 07:18] VITALS: BP 112/78; PULSE 72; TEMP 97.9
[2019-02-25] MEDS ORDERED: PT OWN MED DRAWER 7, Y5N ONE (08:57)
[2019-02-25] MEDS: PRENATAL VITAMINS W/ FOLIC ACID TABLET (FP) PO SCH (09:03)
[2019-02-25] MEDS: CITALOPRAM HYDROBROMIDE 20 MG TABLET (FP) PO SCH (09:03)
[2019-02-25] MEDS: BUDESONIDE/FORMETEROL FUMARATE 160/4.5 mcg INHALER IH SCH (09:03)
[2019-02-25] MEDS: ZIPRASIDONE 40 MG CAPSULE (FP) PO SCH (09:03)
[2019-02-25] MEDS: TRIHEXYPHENIDYL HCL 2 MG TABLET PO SCH (09:03)
[2019-02-25] MEDS: TIOTROPIUM BROMIDE 2.5 MCG (SPIRIVA) RESPIMAT INHALER IH SCH (09:04)
[2019-02-25] MEDS: NICOTINE 21 MG/24 HOURS TOPICAL PATCH TD SCH (09:04)
--- NOTE | 2019-02-25 09:37 | PN ---
S Progress Note Note: Pt was discharged this morning as scheduled. Vital Signs - 24 hr 02/25/19 02/25/19 02/25/19 00:30 03:30 07:18 Temperature 97.9 F Pulse Rate 72 Respiratory 16 16 18 Rate Blood Pressure 112/78 Alert o x 3 denies s/h/i nad oob ambulating with steady gait cardiac:s1 s2,rrr lungs;cta,nadja. A/P Medically stable D/c pt today
== END 2019-02-25 09:10 | disposition home or self-care (01) | DRG 772 ==
LOC: YASAS 15:44 → Y3E 15:45
PROVIDERS: ADMIT Neuromusculoskeletal Medicine & OMM; ATTEND Neuromusculoskeletal Medicine & OMM
PROC: HZ42ZZZ Group Counseling for Substance Abuse Treatment, Cognitive-Behavioral (ICD-10-PCS; principal; 2019-02-12)
DX: F10.20 Alcohol dependence, uncomplicated (principal); F11.20 Opioid dependence, uncomplicated; F14.20 Cocaine dependence, uncomplicated; F12.20 Cannabis dependence, uncomplicated; F39 Unspecified mood [affective] disorder; J44.9 Chronic obstructive pulmonary disease, unspecified; J45.998 Other asthma; D64.9 Anemia, unspecified; Z87.828 Personal history of other (healed) physical injury and trauma; Z88.1 Allergy status to other antibiotic agents; Z91.018 Allergy to other foods